=== PATIENT | female | born 1980 | race Caucasian/White ===

== ENCOUNTER 2017-07-05 07:25 | Emergency (ER) | payer SELFPAY ==
[~2017-07-05] VITALS: Ht 170.2 cm; Wt 81.2 kg
[2017-07-05 07:30] VITALS: BP 140/78
--- NOTE | 2017-07-05 07:34 | NUR ---
Patient ambulated to bed 3
--- NOTE | 2017-07-05 07:39 | NUR ---
36 YO F BIB SELF W/ C/O R LEG PAIN 10/10. PAIN BEGINS AT RIGHT HIP AND RADIATES DOWN TO RIGHT FOOT. PT REPORTS THAT FROM HER RIGHT KNEE DOWN TO RIGHT FOOT THERE IS NUMBNESS/TINGLING THAT SHE STATES FEELS LIKE ITS "ASLEEP". PAIN X 1 MONTH. NUMBNESS JUST STARTED RECENTLY. CMS INTACT. SKIN INTACT AND TEMPERATURE WITHIN NORMAL RANGE. PT DENIES FEVER/CHILLS. PT DENIES ANY TRAUMA/INJURY TO THE AREA. PT A&O X 4. GCS 15. AMBULATORY W/ STEADY GAIT. REPIRATIONS EVEN AND UNLABORED AT THIS TIME. LUNG SOUNDS CLEAR BILATERALLY. ER MD PERALTA NOTIFIED OF PT STATUS. PT NEEDS MET AT THIS TIME. SAFETY PRCAUTIONS IN PLACE. WILL CONTINUE TO MONITOR. Addendum: 07/05/17 at 0749 by [employer] 36 YO F SUMIT SELF W/ C/O R LEG PAIN 10/10. PAIN BEGINS AT RIGHT HIP AND RADIATES DOWN TO RIGHT FOOT. PT REPORTS THAT FROM HER RIGHT KNEE DOWN TO RIGHT FOOT THERE IS NUMBNESS/TINGLING THAT SHE STATES FEELS LIKE ITS "ASLEEP". PAIN X 1 MONTH. NUMBNESS JUST STARTED RECENTLY. CMS INTACT. SKIN INTACT AND TEMPERATURE WITHIN NORMAL RANGE. PT DENIES FEVER/CHILLS. PT DENIES ANY TRAUMA/INJURY TO THE AREA. PT REPORTS THAT WALKING ALLEVIATES THE PAIN, BUT AT NIGHT SHE CAN'T SLEEP BECAUSE THE PAIN IS TOO INTENSE. PT A&O X 4. GCS 15. AMBULATORY W/ STEADY GAIT. REPIRATIONS EVEN AND UNLABORED AT THIS TIME. LUNG SOUNDS CLEAR BILATERALLY. ER MD PERALTA NOTIFIED OF PT STATUS. PT NEEDS MET AT THIS TIME. SAFETY PRCAUTIONS IN PLACE. WILL CONTINUE TO MONITOR.
[2017-07-05] MEDS ORDERED: DEXAMETHASONE 10 MG/ML VIAL IM ONE (07:45)
[2017-07-05] MEDS ORDERED: KETOROLAC 30 MG/ML VIAL IM ONE (07:45)
--- NOTE | 2017-07-05 08:28 | NUR ---
PT TO CT SCAN.
--- NOTE | 2017-07-05 08:40 | NUR ---
PT BACK FROM CT SCAN.
[2017-07-05] MEDS ORDERED: diphenhydrAMINE 50 MG/ML VIAL IM ONE (08:55)
[2017-07-05] MEDS ORDERED: MORPHINE SULFATE 2 MG/ML SYR IM ONE (08:55)
[2017-07-05] MEDS ORDERED: MORPHINE SULFATE 4 MG/ML SYR ONE (09:38)
--- NOTE | 2017-07-05 09:48 | NUR ---
Pt refused Morphine and Benadryl because she does not have anyone to drive her home. Will continue to monitor.
[2017-07-05 09:59] VITALS: BP 134/72
--- NOTE | 2017-07-05 09:59 | NUR ---
Patient discharged with v/s stable. Written and verbal after care instructions given and explained. Patient alert, oriented and verbalized understanding of instructions. Ambulatory with steady gait. All questions addressed prior to discharge. ID band removed. Patient advised to follow up with PMD. Rx of Voltaren & Tramadol given. Patient educated on indication of medication including possible reaction and side effects. Opportunity to ask questions provided and answered.
[2017-07-05 10:26] LABS: APPEARANCE,URINE CLEAR (CLEAR); BILIRUBIN,URINE NEGATIVE (NEGATIVE); BLOOD, URINE TRACE-I (NEGATIVE); COLOR,URINE YELLOW (YELLOW); LEUKOCYTE ESTERASE ,URINE 1+ (NEGATIVE); NITRITE, URINE NEGATIVE (NEGATIVE); UGLUCOSE NEGATIVE (NEGATIVE)
[2017-07-05 10:32] LABS: BARBITURATE, URINE NEG. ng/ml (NEG <=200); BENZODIAZEPINE, URINE NEG. ng/mL (NEG <=200); CANNABINOID, URINE NEG. ng/mL (NEG <=50); COCAINE, URINE NEG. ng/mL (NEG <=300); OPIATE, URINE NEG. ng/mL (NEG <=2000); PHENCYCLIDINE SCREEN,URINE NEG. ng/mL (NEG <=25)
[2017-07-05 10:34] LABS: RBC,URINE 0-5 (RARE) /HPF (0-5)
== END 2017-07-05 09:59 | disposition home or self-care (01) ==
LOC: MED 07:25
DX: M54.41 Lumbago with sciatica, right side (principal); Z88.0 Allergy status to penicillin
CPT/HCPCS: 72131; 80305; 81001; 81025; 87086; 96372; 99285; J1100; J1200; J1885; J2270

== ENCOUNTER 2017-09-30 18:09 | Emergency (ER) | payer MEDICAID ==
--- NOTE | 2017-09-30 18:28 | NUR ---
CALLED OUT AT THE LOBBY NO ANSWER, LWWANG
== END 2017-09-30 18:28 | disposition left against medical advice (07) ==
LOC: MED 18:09
DX: M79.606 Pain in leg, unspecified (principal); Z53.21 Procedure and treatment not carried out due to patient leaving prior to being seen by health care provider

== ENCOUNTER 2017-10-01 07:10 | Emergency (ER) | payer MEDICAID, OTHER ==
[~2017-10-01] VITALS: Ht 172.7 cm; Wt 81.6 kg
[2017-10-01 07:20] VITALS: BP 155/97
--- NOTE | 2017-10-01 07:30 | NUR ---
PT AMBULATED TO ER BED 05
--- NOTE | 2017-10-01 07:34 | NUR ---
PT. CAME INTO THE ED W C/O LOW BACK PAIN X 4 MONTHS THAT RADIATES TO HER R LEG. PT. STATES "I AHVE HAD THIS PAIN FOR A LONG TIME IT HURTS I CANT LAY DOWN, I CANT SIT, IT HURTS WHEN I WALK I FEEL LIKE MY LEG IS TINGLING THE WHOLE TIME". PT. IS AAOX4, RR EVENAND UNLABORED, PT. DENIES SOB, DENIES N/V/D. PT HAS 8/10 SHARP RADIATING PAIN IN HER LOWER BACK DOWN TO HER R LEG. PT. DENIES ANY FALL. ER NOTIFIED. SAFETY PRECAUTIONS IMPLEMENTED. WILL CONTINUE TO MONITOR.
--- NOTE | 2017-10-01 07:45 | NUR ---
Note lisette in EDM - 10/01/17 at 0815 by GUY PT. TAKEN VIA [employer] BY [employer] FOR VQ SCAN. PT. AAOX4, RR EVEN AND UNLABORED.
[2017-10-01] MEDS ORDERED: fentaNYL 0.05 MG/ML VIAL IM ONE (08:15)
[2017-10-01 08:30] VITALS: BP 150/86
--- NOTE | 2017-10-01 08:30 | NUR ---
Patient discharged with v/s stable. Written and verbal after care instructions given and explained. Patient alert, oriented and verbalized understanding of instructions. Ambulatory with steady gait. All questions addressed prior to discharge. ID band removed. Patient advised to follow up with PMD. Rx of MOTRIN, ROBAXIN, MEDROL DOSE PACK, TRAMADOL given. Patient educated on indication of medication including possible reaction and side effects. Opportunity to ask questions provided and answered.
== END 2017-10-01 08:31 | disposition home or self-care (01) ==
LOC: MED 07:10
DX: M54.40 Lumbago with sciatica, unspecified side (principal); R03.0 Elevated blood-pressure reading, without diagnosis of hypertension; Z88.0 Allergy status to penicillin
CPT/HCPCS: 81002; 81025; 96372; 99283; J3010